=== PATIENT | female | born 1945 | race Caucasian/White ===

== ENCOUNTER 2018-09-23 08:38 | Inpatient (IN) | payer MEDICARE, OTHER ==
[2018-09-13 15:22] VITALS: BMI 25.5
[~2018-09-23] VITALS: Ht 154.9 cm; Wt 66.8 kg
[~2018-09-23 08:38] MED LIST: ACETAMINOPHEN 500 MG TAB PO ONE; CLINDAMYCIN 600 MG/D5W (PMX) 50 ML IVPB ONE; DEXAMETHASONE 4 MG/ML 1 ML INJ IV ONE; LACTATED RINGER'S 1,000 ML IV SCH; TRANEXAMIC ACID 1GM/100ML(PMX) 100 ML INTRA-OP X1 IVPB ONE; TRANEXAMIC ACID 1GM/100ML(PMX) 100 ML PRE-OP X1 IVPB ONE
[2018-10-21] VITALS (20 sets, daily range): BP systolic 96–126; BP diastolic 62–82; PULSE 76–102; RESP 15–22; Ht 154.9 cm; Wt 66.8 kg
[2018-10-21] MEDS ORDERED: CLINDAMYCIN 600 MG/D5W (PMX) 50 ML IVPB SCH (06:00)
[2018-10-21] MEDS ORDERED: TRANEXAMIC ACID 1GM/100ML(PMX) 100 ML AT INCISION X1 IVPB ONE (06:00)
[2018-10-21] MEDS ORDERED: ACETAMINOPHEN 1000MG/100ML IV 100 ML IVPB PRN (06:00)
[2018-10-21] MEDS ORDERED: DEXAMETHASONE 4 MG/ML 1 ML INJ IV SCH (06:00)
[2018-10-21] MEDS ORDERED: TRANEXAMIC ACID 1GM/100ML(PMX) 100 ML AT CLOSURE X1 IVPB ONE (06:00)
[2018-10-21] MEDS ORDERED: ACETAMINOPHEN 500 MG TAB PO ONE (06:00)
[2018-10-21] MEDS ORDERED: THROMBIN 5000 UNIT VIAL ONE ×2 (06:56→09:55)
[2018-10-21] MEDS ORDERED: GELATIN SIZE 100 SPONGE ONE ×2 (06:56→09:55)
[2018-10-21] MEDS ORDERED: POLYMYXIN/BACITRACIN 1L IRRIG ONE ×2 (06:56→09:55)
[2018-10-21] MEDS ORDERED: SEVOFLURANE 15 MIN ONE (07:00)
--- NOTE | 2018-10-21 07:40 | HPN ---
Date/Time of Note Date/Time of Note DATE: 10/21/18 TIME: 07:39 Interval H&P Admission Note Pt. seen H&P reviewed: No system changes MAXIMUS CROSS Oct 21, 2018 07:40
[2018-10-21] MEDS ORDERED: GABA100C14 PO (08:15)
[2018-10-21] MEDS ORDERED: ESOM40CA PO (08:15)
[2018-10-21] MEDS ORDERED: ASPI81TA52 PO (08:15)
[2018-10-21] MEDS ORDERED: AMLO5TAB4 PO (08:16)
[2018-10-21] MEDS ORDERED: CALC1TAB93 PO (08:16)
[2018-10-21] MEDS ORDERED: PRAV20TA63 PO (08:17)
[2018-10-21] MEDS ORDERED: ALPR0.25 PO (08:17)
--- NOTE | 2018-10-21 09:35 | PREAC ---
Date/Time of Note Date/Time of Note DATE: 10/21/18 TIME: 09:33 Anesthesia Eval and Record Evaluation Time Pre-Procedure Interview DATE: 10/21/18 TIME: 09:33 Age 73 Sex female NPO: 8 hrs Preoperative diagnosis right shoulder rotator tear, arthritis Planned procedure right total shoulder replacement Past Medical History Past Medical History: Includes Cardio: HTN, Dyslipidemia Surgery & Anesthesia Issues No known issue Meds Anticoagulation: No Beta Colt within 24 hr: No Reason Beta Cotl not given: Pt. not on B-Colt Reported Medications Alprazolam* (Xanax*) 0.25 Mg Tablet, 0.25 MG PO DAILY PRN for ANXIETY, TAB 10/21/18 Pravastatin Sodium* (Pravastatin Sodium*) 20 Mg Tablet, 20 MG PO HS, TAB 10/21/18 Calcium Carbonate/Vitamin D3 (OYSTER SHELL 500 MG + VIT D TB) 1 Each Tablet, 1 EACH PO TID, TAB 10/21/18 Amlodipine Besylate* (Norvasc*) 5 Mg Tablet, 5 MG PO DAILY, TAB 10/21/18 Esomeprazole Mag Trihydrate (Nexium) 40 Mg Capsule.dr, 40 MG PO DAILY, #30 CAP 10/21/18 Gabapentin* (Gabapentin*) 100 Mg Capsule, 100 MG PO TID, #90 CAP 10/21/18 Aspirin (Low Dose Aspirin) 81 Mg Tablet.dr, 81 MG PO DAILY, #30 TAB 10/21/18 Current Medications Clindamycin HCl/ Dextrose 50 ml @ 50 mls/hr ONCE IVPB ; Start 10/21/18 at 06:00; Stop 10/21/18 at 12:00 Dexamethasone (Decadron) 8 mg ONCE IV Last administered on 10/21/18at 08:43; Admin Dose 8 MG; Start 10/21/18 at 06:00; Stop 10/21/18 at 13:00 Meds reviewed: Yes Allergies Coded Allergies: Penicillins (Verified Allergy, Severe, rash, 10/21/18) Allergies Reviewed: Yes Labs/Studies Labs Reviewed: Reviewed by anesthesiologist Blood Bank Test 10/21/18 08:25 Blood Type B POSITIVE test: N/A Studies: ECG, CXR Pre-procedure Exam Last vitals Vital Signs Date Temp Pulse Resp B/P (MAP) Pulse Ox O2 O2 Flow FiO2 Time Delivery Rate 7/11/19 97.7 79 18 126/80 95 Room Air 08:00 (95) Airway: Adequate mouth opening, Adequate thyromental dist Mallampati: Mallampati I Teeth: Normal Lung: Normal Heart: Normal ASA Physical Status ASA physical status: 2 Emergency: None Planned Anesthetic General/MAC: ETT Nerve block: Brachial plexus (right) Planned Pain Management Single shot nerve block, Parenteral pain med Pre-operative Attestations Prior to commencing anesthesia and surgery, the patient was re-evaluated, there was verification of: *The patient's identity *The results of appropriate recent lab work and preoperative vital signs *The above evaluation not changing prior to induction *Anesthetic plan, risk benefits, alternative and complications discussed with patient/family; questions answered; patient/family understands, accepts and wishes to proceed. SCARLETT VALDOVINOS Oct 21, 2018 09:35
[2018-10-21] MEDS ORDERED: BUPIVACAINE 0.5% (SDV) 30 ML INJ ONE (09:40)
[2018-10-21] MEDS ORDERED: FENTAnyl 50 MCG/ML VIAL ONE (10:05)
[2018-10-21] MEDS ORDERED: PROPOFOL 20 ML ONE (10:05)
[2018-10-21] MEDS ORDERED: ROCURONIUM 50 MG INJ ONE (10:05)
[2018-10-21] MEDS ORDERED: MIDAZOLAM 1 MG/ML 2 ML INJ ONE (10:07)
[2018-10-21] MEDS ORDERED: LIDOCAINE 2% (SDV) 5 ML INJ ONE (11:05)
[2018-10-21] MEDS ORDERED: ONDANSETRON 4 MG INJ ONE (11:05)
[2018-10-21] MEDS ORDERED: DEXAMETHASONE 4 MG/ML 5 ML INJ ONE (11:05)
[2018-10-21] MEDS ORDERED: TRANEXAMIC ACID 1GM/100ML(PMX) 200 ML ONE (11:59)
[2018-10-21] MEDS ORDERED: GLYCOPYRROLATE 0.4 MG INJ ONE (12:36)
[2018-10-21] MEDS ORDERED: NEOSTIGMINE 3 MG/3 ML SYRINGE ONE (12:36)
[2018-10-21] MEDS: LACTATED RINGER'S 1,000 ML IV SCH ×2 (12:51→18:22)
--- NOTE | 2018-10-21 12:51 | PAC ---
Date/Time of Note Date/Time of Note DATE: 10/21/18 TIME: 12:51 Post-Anesthesia Notes Post-Anesthesia Note Last documented vital signs Vital Signs Date Temp Pulse Resp B/P (MAP) Pulse Ox O2 O2 Flow FiO2 Time Delivery Rate 10/21/18 97.7 79 18 126/80 95 Room Air 1251 (95) Activity: WNL Respiratory function: WNL Cardiovascular function: WNL Mental status: Baseline Pain reasonably controlled: Yes Hydration appropriate: Yes Nausea/Vomiting absent: Yes SCARLETT VALDOVINOS Oct 21, 2018 12:51
--- NOTE | 2018-10-21 12:51 | SIPON ---
Date/Time of Note Date/Time of Note DATE: 10/21/18 TIME: 12:49 Operative Report Preoperative Diagnosis right shoulder cuff tear arthropathy Postoperative Diagnosis same Operation/Procedure Performed Right TSA using the reverse prosthesis Surgeon see signature line outpatient physical therapist assistant RAQUEL Duncan Anesthesia: general Estimated blood loss: 250 - 300 ml's Transfusion Required none Specimen bone Grafts/Implants DePuy shoulder, 12 stem, 38 glenosphere, 3 mm poly Complications none MAXIMUS CROSS Oct 21, 2018 12:51
[2018-10-21] MEDS ORDERED: MIDAZOLAM 1 MG/ML 2 ML INJ IV PRN (13:00)
[2018-10-21] MEDS ORDERED: METOCLOPRAMIDE 10 MG INJ IV PRN (13:00)
[2018-10-21] MEDS ORDERED: KETOROLAC 30 MG INJ IV PRN (13:00)
[2018-10-21] MEDS ORDERED: oxyCODONE 5 MG TAB PO PRN (13:00)
[2018-10-21] MEDS ORDERED: ALBUTEROL 0.083% (NEB) 2.5 MG/3 ML AMP HHN PRN (13:00)
[2018-10-21] MEDS ORDERED: FENTAnyl 50 MCG/ML VIAL IV PRN ×3 (13:00)
[2018-10-21] MEDS ORDERED: hydrALAzine 20 MG INJ IV PRN (13:00)
[2018-10-21] MEDS: ASPIRIN 81 MG TAB PO ONE ×2 (13:00→16:13)
[2018-10-21] MEDS ORDERED: DIPHENHYDRAMINE 50 MG INJ IV PRN (13:00)
[2018-10-21] MEDS ORDERED: LABETALOL HCL 20MG INJ IV PRN (13:00)
[2018-10-21] MEDS ORDERED: HYDROmorphONE 1 MG/5 ML IV SYRINGE IV PRN ×3 (13:00)
[2018-10-21] MEDS ORDERED: EPHEDrine 25 MG/5 ML SYG IV PRN (13:00)
[2018-10-21] MEDS ORDERED: ONDANSETRON 4 MG INJ IV PRN (13:00)
[2018-10-21] MEDS ORDERED: MEPERIDINE 25 MG INJ IV PRN (13:00)
[2018-10-21] MEDS ORDERED: OXYCODONE/ACETAMINOPHEN (5/325) TAB PO PRN ×2 (13:00)
[2018-10-21] MEDS ORDERED: MAGNESIUM HYDROXIDE 30ML CUP PO PRN (13:00)
--- NOTE | 2018-10-21 14:59 | OPR ---
Date/Time of Note Date/Time of Note DATE: 10/21/18 TIME: 14:56 Operative Report Procedure Date: Oct 21, 2018 Preoperative Diagnosis Right shoulder cuff tear arthropathy Postoperative Diagnosis Same Operation/Procedure Performed Right total shoulder replacement using the reverse prosthesis Surgeon see signature line Auto Radiator Specialist TAMICA Duncan Anesthesia Type: general Estimated Blood Loss: 150 - 200 ml's Transfusion none Specimen Bone Grafts/Implants Maben shoulder, size 12 stem, 38 mm glenosphere and 3 mm polyethylene Tubes/Drains None Complications none Pt Condition Post Procedure: stable Disposition: PACU Indications Patient is a 73-year-old lady with right shoulder cuff tear arthropathy Procedure Description Patient was placed in a beachchair position. Right shoulder was prepped and draped in usual manner. An anterior incision was made. The deltopectoral approach was used. Cephalic vein was retracted laterally with the deltoid. The shoulder was opened by incising the subscapularis 1 cm lateral to the biceps tendon. Massive rotator cuff tear was encountered. With dislocation of the shoulder, the humeral neck cut was made in 30 degrees of retroversion. The canal was prepared for a size 12 stem. The glenoid was prepared with the provided instrumentation. A center hole was drilled and then reaming was done. The glenoid baseplate was affixed to the glenoid with screws. Once stable fixation was obtained, a 38 mm glenosphere was placed. Trials were inserted. The shoulder had good range of motion with good stability. The final size 12 stem was placed along with the 3 mm polyethylene to complete the reverse shoulder replacement. The shoulder was injected with Marcaine and Toradol. Hemostasis was confirmed and the wound closed in layers using #1 strata fix for deep fascia, 2-0 Vicryl for subcutaneous tissue and 3-0 Monocryl for the skin. Patient was transferred to the recovery room in stable condition MAXIMUS CRSOS Oct 21, 2018 14:59
[2018-10-21] MEDS ORDERED: CEPASTAT LOZENGE MT PRN (16:00)
--- NOTE | 2018-10-21 16:13 | HP ---
Date/Time of Note Date/Time of Note DATE: 10/21/18 TIME: 16:05 Assessment/Plan VTE Prophylaxis SCD applied (from Nsg): Yes Pharmacological prophylaxis: NA/contraindicated Pharm contraindication: surgical contra Lines/Catheters IV Catheter Type (from Nrsg): Peripheral IV Urinary Cath still in place: No Assessment/Plan Assessment/Plan -Right shoulder cuff tear arthropathy. S/p Right total shoulder replacement using the reverse prosthesis by Dr Best. -Hypertension, continue Norvasc and lisinopril. -Hyperlipidemia, continue statin. Further recommendations based on clinical course. Plan of care discussed with Dr. Vila. HPI/ROS Admit Date/Time Admit Date/Time Oct 21, 2018 at 07:08 Hx of Present Illness Patient is 73-year-old female with history of hypertension, hyperlipidemia. Patient was evaluated by Dr. Best for right shoulder pain and history of right shoulder cuff tear arthroplasty. Patient was brought to the hospital today and underwent right total shoulder replacement using the reverse prosthesis. Patient is admitted for further evaluation and management to medical surgical floor. ROS 12 point review of system is negative except for what mentioned in HPI PMH/Family/Social Past Medical History Medical History: high cholesterol, hypertension Medications Current Medications Hydromorphone HCl (Dilaudid) 0.2 mg PACU PRN IV MILD PAIN 1-3; Start 10/21/18 at 13:00; Stop 10/21/18 at 20:00 Hydromorphone HCl (Dilaudid) 0.4 mg PACU PRN IV MOD PAIN 4-6; Start 10/21/18 at 13:00; Stop 10/21/18 at 20:00 Hydromorphone HCl (Dilaudid) 0.6 mg PACU PRN IV SEVERE PAIN 7-10; Start 10/21/18 at 13:00; Stop 10/21/18 at 20:00 Fentanyl (Sublimaze) 25 mcg PACU ORDER PRN IV MILD PAIN 1-3; Start 10/21/18 at 13:00; Stop 10/21/18 at 20:00 Fentanyl (Sublimaze) 50 mcg PACU ORDER PRN IV MOD PAIN 4-6; Start 10/21/18 at 13:00; Stop 10/21/18 at 20:00 Fentanyl (Sublimaze) 75 mcg PACU ORDER PRN IV SEVERE PAIN 7-10; Start 10/21/18 at 13:00; Stop 10/21/18 at 20:00 Ketorolac Tromethamine (Toradol) 30 mg PACU ORDER PRN IV FOR PAIN AFTER IV NARCOTIC MED; Start 10/21/18 at 13:00; Stop 10/21/18 at 20:00 Oxycodone/ Acetaminophen (Percocet (5/ 325)) 1 tab PACU ORDER PRN PO .PAIN 1-5; Start 10/21/18 at 13:00; Stop 10/21/18 at 20:00 Oxycodone/ Acetaminophen (Percocet (5/ 325)) 2 tab PACU ORDER PRN PO .PAIN 6-10; Start 10/21/18 at 13:00; Stop 10/21/18 at 20:00 Ondansetron HCl (Zofran Inj) 4 mg PACU ORDER PRN IV NAUSEA/VOMITING; Start 10/21/18 at 13:00; Stop 10/21/18 at 20:00 Metoclopramide HCl (Reglan) 10 mg PACU ORDER PRN IV NAUSEA/VOMITING; Start 10/21/18 at 13:00; Stop 10/21/18 at 20:00 Labetalol HCl (Labetalol) 5 mg PACU ORDER PRN IV HIGH BLOOD PRESSURE; Start 10/21/18 at 13:00; Stop 10/21/18 at 20:00 Hydralazine HCl (Apresoline) 5 mg PACU ORDER PRN IV HIGH BLOOD PRESSURE; Start 10/21/18 at 13:00; Stop 10/21/18 at 20:00 Ephedrine Sulfate 5 mg PACU ORDER PRN IV BLOOD PRESSURE SUPPORT; Start 10/21/18 at 13:00; Stop 10/21/18 at 20:00 Albuterol (Proventil 0.083% (Neb)) 2.5 mg PACU ORDER PRN HHN .WHEEZING; Start 10/21/18 at 13:00; Stop 10/21/18 at 20:00 Meperidine HCl (Demerol) 25 mg PACU ORDER PRN IV .RIGORS; Start 10/21/18 at 13:00; Stop 10/21/18 at 20:00 Diphenhydramine HCl (Benadryl) 25 mg PACU ORDER PRN IV .PRURITUS; Start 10/21/18 at 13:00; Stop 10/21/18 at 20:00 Midazolam HCl (Versed) 0.5 mg PACU ORDER PRN IV .ANXIETY; Start 10/21/18 at 13:00; Stop 10/21/18 at 20:00 Magnesium Hydroxide (Milk Of Mag) 30 ml BID PRN PO CONSTIPATION; Start 10/21/18 at 13:00 Lactated Ringer's 1,000 ml @ 100 mls/hr Q10H IV ; Start 10/21/18 at 12:51 Oxycodone HCl (Roxicodone) 5 mg Q4H PRN PO MODERATE PAIN LEVEL 4-6; Start 10/21/18 at 13:00 Oxycodone HCl (Roxicodone) 10 mg Q4H PRN PO MODERATE PAIN LEVEL 4-6; Start 10/21/18 at 13:00 Phenol (Cepastat Lozenge) 1 lozenge Q1H PRN MT SORE THROAT; Start 10/21/18 at 16:00 Coded Allergies: Penicillins (Verified Allergy, Severe, rash, 10/21/18) Past Surgical History Past Surgical Hx: no surgical history Family History Significant Family History: no pertinent family hx Social History Alcohol Use: none Smoking Status: Never smoker Drug Use: none Exam/Review of Systems Vital Signs Vitals Vital Signs Date Temp Pulse Resp B/P (MAP) Pulse Ox O2 O2 Flow FiO2 Time Delivery Rate 10/21/18 Nasal 2.0 14:00 Cannula 10/21/18 76 19 96/62 (73) 96 13:28 10/21/18 97.9 12:56 Exam Constitutional: alert, oriented Head: normocephalic Neck: supple Respiratory: clear to auscultation Cardiovascular: nl pulses Gastrointestinal: soft, non-tender Musculoskeletal: other (Status post right shoulder surgery) Extremities: normal pulses Neurological: nl mental status Skin: nl REINALDO Jama Oct 21, 2018 16:13
[2018-10-21] MEDS ORDERED: ALPRAZOLAM 0.25 MG TAB PO PRN (16:30)
[2018-10-21] MEDS: GABAPENTIN 100 MG CAP PO SCH (20:38)
[2018-10-21] MEDS: CALCIUM/VITAMIN D (500/200) TAB PO SCH (20:38)
[2018-10-21] MEDS ORDERED: ATORVASTATIN 10 MG TAB PO SCH (21:00)
[2018-10-21] MEDS: oxyCODONE 5 MG TAB PO PRN (23:49)
[2018-10-22 00:04] VITALS: BP 108/65; PULSE 88; RESP 18
[2018-10-22] MEDS ORDERED: PANTOPRAZOLE (EC) 40 MG TAB PO SCH (06:00)
[2018-10-22 07:21] VITALS: BP 105/62; PULSE 78; RESP 20
--- NOTE | 2018-10-22 08:09 | PN ---
Date/Time of Note Date/Time of Note DATE: 10/22/18 TIME: 08:07 Assessment/Plan VTE Prophylaxis Risk score (from Ns)>0 risk: 6 SCD applied (from [facility]): Yes SCD contraindicated: other Pharmacological prophylaxis: other Pharm contraindication: other Lines/Catheters IV [facility]atheter Type (from [facility]): Peripheral IV Urinary Cath still in place: No Assessment/Plan Assessment/Plan -Right shoulder cuff tear arthropathy. S/p Right total shoulder replacement using the reverse prosthesis by Dr Best. -Hypertension, continue Norvasc and lisinopril. -Hyperlipidemia, continue statin. Further recommendations based on clinical course. Plan of care discussed with Dr. Vila. Result Diagram: 10/22/1843710/22/18437 Results 24hrs Laboratory Tests Test 10/22/18 04:38 White Blood Count 14.2 H Red Blood Count 3.68 L Hemoglobin 11.3 L Hematocrit 33.5 L Mean Corpuscular Volume 91.0 Mean Corpuscular Hemoglobin 30.7 Mean Corpuscular Hemoglobin Concent 33.7 Red Cell Distribution Width 13.0 Platelet Count 273 Mean Platelet Volume 9.6 Immature Granulocytes % 0.600 H Neutrophils % 88.8 H Lymphocytes % 6.1 L Monocytes % 4.4 Eosinophils % 0.0 Basophils % 0.1 Nucleated Red Blood Cells % 0.0 Immature Granulocytes # 0.090 H Neutrophils # 12.6 H Lymphocytes # 0.9 Monocytes # 0.6 Eosinophils # 0.0 Basophils # 0.0 Nucleated Red Blood Cells # 0.0 Sodium Level 134 L Potassium Level 4.3 Chloride Level 102 Carbon Dioxide Level 25 Anion Gap 7 Blood Urea Nitrogen 13 Creatinine 0.53 Est Glomerular Filtrat Rate mL/min Glucose Level 114 Calcium Level 9.0 Subjective 24 Hr Interval Summary Free Text/Dictation possible dc home no new events last night Eyes: no complaints ENT: no complaints Respiratory: no complaints Cardiovascular: no complaints Gastrointestinal: no complaints Genitourinary: no complaints Musculoskeletal: bone/joint pain, restricted range of motion Skin: no complaints Neurologic: no complaints Endocrine: no complaints Lymphatic: no complaints Psychological: nl mood/affect Immunologic: no complaints Exam/Review of Systems Exam Vitals Vital Signs Date Temp Pulse Resp B/P (MAP) Pulse Ox O2 O2 Flow FiO2 Time Delivery Rate 10/22/18 98.1 78 20 105/62 98 07:21 (76) 10/22/18 Nasal 00:04 Cannula 10/21/18 2.0 14:00 Intake and Output 10/21/18 10/21/18 10/22/18 1515:00 23:00 07:00 IntakeIntake Total 1600 ml 200 ml 500 ml OutputOutput Total 40 ml BalanceBalance 1560 ml 200 ml 500 ml Constitutional: alert, oriented, well developed Psych: nl mood/affect Head: normocephalic Eyes: nl lids, nl sclera Neck: non-tender Respiratory: clear to auscultation Cardiovascular: other (s1s2) Gastrointestinal: soft, non-tender Musculoskeletal: nl extremities to inspection Extremities: normal pulses Neurological: nl mental status, nl speech Lymph: nontender Results Results 24hrs Laboratory Tests Test 10/22/18 04:38 White Blood Count 14.2 H Red Blood Count 3.68 L Hemoglobin 11.3 L Hematocrit 33.5 L Mean Corpuscular Volume 91.0 Mean Corpuscular Hemoglobin 30.7 Mean Corpuscular Hemoglobin Concent 33.7 Red Cell Distribution Width 13.0 Platelet Count 273 Mean Platelet Volume 9.6 Immature Granulocytes % 0.600 H Neutrophils % 88.8 H Lymphocytes % 6.1 L Monocytes % 4.4 Eosinophils % 0.0 Basophils % 0.1 Nucleated Red Blood Cells % 0.0 Immature Granulocytes # 0.090 H Neutrophils # 12.6 H Lymphocytes # 0.9 Monocytes # 0.6 Eosinophils # 0.0 Basophils # 0.0 Nucleated Red Blood Cells # 0.0 Sodium Level 134 L Potassium Level 4.3 Chloride Level 102 Carbon Dioxide Level 25 Anion Gap 7 Blood Urea Nitrogen 13 Creatinine 0.53 Est Glomerular Filtrat Rate mL/min Glucose Level 114 Calcium Level 9.0 Medications Medication Current Medications Magnesium Hydroxide (Milk Of Mag) 30 ml BID PRN PO CONSTIPATION; Start 10/21/18 at 13:00 Lactated Ringer's 1,000 ml @ 100 mls/hr Q10H IV Last administered on 10/21/18at 18:22; Admin Dose 100 MLS/HR; Start 10/21/18 at 12:51 Oxycodone HCl (Roxicodone) 5 mg Q4H PRN PO MODERATE PAIN LEVEL 4-6 Last administered on 10/21/18at 23:49; Admin Dose 5 MG; Start 10/21/18 at 13:00 Oxycodone HCl (Roxicodone) 10 mg Q4H PRN PO MODERATE PAIN LEVEL 4-6; Start 10/21/18 at 13:00 Phenol (Cepastat Lozenge) 1 lozenge Q1H PRN MT SORE THROAT Last administered on 10/21/18 16:14; Admin Dose 1 LOZENGE; Start 10/21/18 at 16:00 Amlodipine Besylate (Norvasc) 5 mg DAILY PO ; Start 10/22/18 at 09:00 Aspirin (Halfprin) 81 mg DAILY PO ; Start 10/22/18 at 09:00 Gabapentin (Neurontin) 100 mg TID PO Last administered on 10/21/18at 20:38; Admin Dose 100 MG; Start 10/21/18 at 21:00 Pantoprazole (Protonix Tab) 40 mg DAILY@06 PO Last administered on 10/22/18 06:07; Admin Dose 40 MG; Start 10/22/18 at 06:00 Atorvastatin Calcium (Lipitor) 10 mg HS PO Last administered on 10/21/18at 20:38; Admin Dose 10 MG; Start 10/21/18 at 21:00 Alprazolam (Xanax) 0.25 mg DAILY PRN PO ANXIETY Last administered on 10/21/18 20:38; Admin Dose 0.25 MG; Start 10/21/18 at 16:30 Calcium/Vitamin D (Oyster Shell/ Vit-D (500/200)) 1 tab TID PO ; Start 10/21/18 at 21:00 HERLINDA BLEDSOE Oct 22, 2018 08:09
--- NOTE | 2018-10-22 08:11 | PDOCDIS ---
Discharge Instructions CONDITION [id number] Patient Condition: [id number] Stable HOME CARE INSTRUCTIONS: [id number] Diet Instructions: [id number] Regular ACTIVITY: [id number] Activity Restrictions: [id number] Slowly Increase Activity Rest between Activity Avoid heavy lifting Do not Drive Do not operate Machinery Do not operate Power Tool Avoid Heavy Housework [id number] Bathing Restrictions: [id number] Sponge Bath FOLLOW UP/APPOINTMENTS Follow-up Plan FU with Primary MD x 1 week Fu with Ortho MD as directed Call 911 or go to the nearest hospital if symptoms get worse Patient verbalized understanding dc instructions vivienne palafox staff HERLINDA BLEDSOE Oct 22, 2018 08:11
[2018-10-22] MEDS ORDERED: OXYC-481 PO (08:13)
[2018-10-22] MEDS: LACTATED RINGER'S 1,000 ML IV SCH (08:51)
[2018-10-22] MEDS ORDERED: ASPIRIN (EC) 81 MG TAB PO SCH (09:00)
[2018-10-22] MEDS ORDERED: AMLODIPINE 5 MG TAB PO SCH (09:00)
[2018-10-22] MEDS: CALCIUM/VITAMIN D (500/200) TAB PO SCH (09:10)
[2018-10-22] MEDS: GABAPENTIN 100 MG CAP PO SCH (09:10)
[2018-10-22] MEDS: oxyCODONE 5 MG TAB PO PRN (11:39)
--- NOTE | 2018-10-23 01:47 | DS ---
Date/Time of Note Date/Time of Note DATE: 10/23/18 TIME: 01:39 Discharge Summary Admission/Discharge Info Admit Date/Time Oct 21, 2018 at 07:08 Discharge Date/Time Oct 22, 2018 at 12:30 Discharge Diagnosis -Right shoulder cuff tear arthropathy. -S/p Right total shoulder replacement using the reverse prosthesis by Dr Best. -Hypertension, continue Norvasc and lisinopril. -Hyperlipidemia, continue statin. Plan of care discussed with Dr. Vila. Patient Condition: Stable Hospital Course Patient is 73-year-old female with history of hypertension, hyperlipidemia. who is diagnose with right shoulder cuff tear and needed arthroplasty. She underwent right total shoulder replacement using the reverse prosthesis by Dr. Best. Patient was admitted for further evaluation and management and physical therapy to medical surgical floor. Constitutional: alert, oriented, well developed Psych: nl mood/affect Head: normocephalic Eyes: nl lids, nl sclera Neck: non-tender Respiratory: clear to auscultation Cardiovascular: other (s1s2) Gastrointestinal: soft, non-tender Musculoskeletal:decreased ROM ; bone/joint pain Extremities: normal pulses Neurological: nl mental status, nl speech Lymph: nontender Patientn is stable,cleared by PT and Zac Vila Home Meds Active Scripts Oxycodone Hcl* (IR) (Roxicodone*) 5 Mg Tab, 5 MG PO Q6 PRN for MODERATE PAIN LEVEL 4-6, #20 TAB Prov:HOLLY BLEDSOEBIR 10/22/18 Reported Medications Alprazolam* (Xanax*) 0.25 Mg Tablet, 0.25 MG PO DAILY PRN for ANXIETY, TAB 10/21/18 Pravastatin Sodium* (Pravastatin Sodium*) 20 Mg Tablet, 20 MG PO HS, TAB 10/21/18 Calcium Carbonate/Vitamin D3 (OYSTER SHELL 500 MG + VIT D TB) 1 Each Tablet, 1 EACH PO TID, TAB 10/21/18 Amlodipine Besylate* (Norvasc*) 5 Mg Tablet, 5 MG PO DAILY, TAB 10/21/18 Esomeprazole Mag Trihydrate (Nexium) 40 Mg Capsule., 40 MG PO DAILY, #30 CAP 10/21/18 Gabapentin* (Gabapentin*) 100 Mg Capsule, 100 MG PO TID, #90 CAP 10/21/18 Aspirin (Low Dose Aspirin) 81 Mg Tablet., 81 MG PO DAILY, #30 TAB 10/21/18 Follow-up Plan FU with Primary MD x 1 week Fu with Ortho MD as directed Call 911 or go to the nearest hospital if symptoms get worse Patient verbalized understanding dc instructions dw Dr Julito palafox staff Primary Care Provider Not On Staff Doctor Pending Labs Laboratory Tests Test 10/22/18 04:38 White Blood Count 14.2 10^3/ul (4.8-10.8) Red Blood Count 3.68 10^6/ul (4.20-5.40) Hemoglobin 11.3 g/dl (12.0-16.0) Hematocrit 33.5 % (37.0-47.0) Mean Corpuscular Volume 91.0 fl (82.0-101.0) Mean Corpuscular Hemoglobin 30.7 pg (29.0-33.0) Mean Corpuscular Hemoglobin Concent 33.7 g/dl (32.0-37.0) Red Cell Distribution Width 13.0 % (11.5-14.5) Platelet Count 273 10^3/UL (140-415) Mean Platelet Volume 9.6 fl (7.4-10.4) Immature Granulocytes % 0.600 % (0.001-0.429) Neutrophils % 88.8 % (39.0-77.0) Lymphocytes % 6.1 % (15.0-51.0) Monocytes % 4.4 % (0.0-11.0) Eosinophils % 0.0 % (0.0-7.0) Basophils % 0.1 % (0.0-2.0) Nucleated Red Blood Cells % 0.0 /100WBC (0.0-0.0) Immature Granulocytes # 0.090 10^3/ul (0.0-0.031) Neutrophils # 12.6 10^3/ul (1.6-7.5) Lymphocytes # 0.9 10^3/ul (0.8-2.9) Monocytes # 0.6 10^3/ul (0.3-0.9) Eosinophils # 0.0 10^3/ul (0.0-0.5) Basophils # 0.0 10^3/ul (0.0-0.1) Nucleated Red Blood Cells # 0.0 10^3/ul (0.0-0.0) Sodium Level 134 mmol/L (135-144) Potassium Level 4.3 mmol/L (3.5-5.1) Chloride Level 102 mmol/L (97-110) Carbon Dioxide Level 25 mmol/L (21-31) Anion Gap 7 (5-13) Blood Urea Nitrogen 13 mg/dl (7-20) Creatinine 0.53 mg/dl (0.44-1.00) Est Glomerular Filtrat Rate mL/min mL/min (>60) Glucose Level 114 mg/dl (70-220) Calcium Level 9.0 mg/dl (8.4-10.2) HERLINDA BLEDSOE Oct 23, 2018 01:47
== END 2018-10-22 12:30 | disposition home or self-care (01) | DRG 483 ==
LOC: REC 10-21 07:08 → MS1 10-21 14:05
PROVIDERS: ADMIT Orthopaedic Surgery; ATTEND Orthopaedic Surgery
PROC: 0RRJ00Z Replacement of Right Shoulder Joint with Reverse Ball and Socket Synthetic Substitute, Open Approach (ICD-10-PCS; principal; 2018-10-21 09:00)
DX: M75.101 Unspecified rotator cuff tear or rupture of right shoulder, not specified as traumatic (principal); I10 Essential (primary) hypertension; E78.5 Hyperlipidemia, unspecified
CPT/HCPCS: 80048; 85025; 86850; 86900; 86901; 87081; 88304; 88311; 97110; 97161; 97530; C1776; J0171; J1100; J1885; J2250; J2405; J2710; J2795; J3010; J7120